=== PATIENT | female | born 1995 | race Caucasian/White ===

== ENCOUNTER → 2024-09-08 06:14 | Day surgery (SDC) | payer OTHER, SELFPAY | LOC: GI 06:14 | PROVIDERS: ATTENDING PHYSICIAN Internal Medicine | DX: K29.50 Unspecified chronic gastritis without bleeding (principal); K90.0 Celiac disease; R14.0 Abdominal distension (gaseous) | CPT/HCPCS: 43239; 88305; 88342 ==

== ENCOUNTER 2025-04-14 03:58 | Emergency (ER) | payer OTHER, SELFPAY ==
[2025-04-14 04:02] VITALS: BP 127/89
--- NOTE | 2025-04-14 06:43 | ED.GENMED ---
History of Present Illness
General
Chief Complaint: Fall
Time Seen by Provider: 04/14/25 06:11
History of Present Illness
History of Present Illness:
29-year-old female without significant past medical history presenting after a fall. Patient reports prior to arrival she missed a step and landed directly on her left elbow. She notes subsequent pain and swelling, is unable to fully extend her
elbow. Also reports left ankle pain. Denies head injury or loss of consciousness. Denies any prodromal dizziness or lightheadedness. Denies numbness or tingling to her extremities. She took ibuprofen prior to arrival, notes improvement in her
pain. Reports remote history of fracture to her elbow in 2019, requiring repair. Denies additional acute medical complaints or injuries at this time
Past History
Past History
ED Past Medical History: Psychiatric (a/d)
Social History
Tobacco: Non-smoker
Phy Exam
Physical Exam
Physical Exam:
General: Well-appearing, no clinical signs of dehydration, nontoxic and in no acute distress
HEENT: protecting airway
Neck: appears supple
CV: Normal heart rate
Resp: No accessory muscle use, no increased work of breathing
Abd: No distention
Extremities: No obvious deformity to the left upper extremity, however moderate effusion to the elbow with generalized pain. Unable to fully extend left arm, held in flexed position. No erythema or warmth. Distal patient and pulses intact. No
tenderness to the humerus or forearm. No significant swelling to the left ankle. No deformity. Generalized tenderness to the ankle joint with range of motion intact. Distal sensation and pulses intact
Neuro: alert, no focal neurologic deficit
: deferred
Rectal: deferred
Psych: Normal affect
Skin: Intact
Course
Orders/Labs/Results
Orders:
Orders
04/14/25 04:07
CR Elbow - Left Min 3 Views Urgent
Comment:
Reason For Exam: fell, injury to L elbow, hx injury and surgery
Foot, Left 3 View [CR Foot - Left Min 3 Views] Urgent
Comment:
Reason For Exam: fell, injury to distal metatarsal area
Vital Signs
Initial and Last Documented VS:
Initial Vital Signs
Temp Pulse Resp BP Pulse Ox
98.6 F 101 14 127/89 99
04/14/25 04:02 04/14/25 04:02 04/14/25 04:02 04/14/25 04:02 04/14/25 04:02
Last Documented Vital Signs
Temp Pulse Resp BP Pulse Ox
98.6 F 101 14 127/89 99
04/14/25 04:02 04/14/25 04:02 04/14/25 04:02 04/14/25 04:02 04/14/25 04:02
Procedures
Splinting/Sling Placement
Left Elbow:
Procedure completed by: Angie Gibson
Pre-splint extermity exam: neurovascular intact
Type of splint: posterior long arm
Splint material: fiberglass
Splint checked by provider?: Yes
Type of sling: sling fitted
Normal distal neurovascular exam?: Yes
MDM/Problems Addressed
MDM/Problems Addressed:
29-year-old female presenting after a fall with left elbow and left ankle pain. Vital signs normal.
On exam, patient resting comfortably, no acute distress or discomfort. Obvious joint effusion to the left elbow. Otherwise no infectious findings, no neurovascular compromise. No significant signs of trauma to the left ankle. Again no
neurovascular compromise, no infectious findings. Patient without any signs of head trauma, GCS of 15. Denies any prodromal symptoms, without concern for syncope or near syncope. Fall appears to be mechanical in nature. Patient declining any
pain medications at this time. X-rays obtained prior to my assessment of both the elbow and the ankle. Elbow shows a moderate effusion of the olecranon region. No obvious fracture, however could indicate occult intra-articular fracture. For this
reason we will place patient in a posterior long-arm splint. No fracture or malalignment to the ankle. Will place in a [place] shoe. Otherwise feel stable for discharge with outpatient orthopedic follow-up. Patient follows with [facility]
orthopedics. Advised Tylenol or Motrin as needed for pain. Return precautions discussed.
*Critical Care Note
Total Time (30-74mins, 75-104mins- exclusive of procedures): Not Applicable
ED Attending Note
-
Portions of this chart may have been created with voice recognition software.� Occasional wrong word or��sound alike� substitutions may have occurred due to the inherent limitations of voice recognition software.
Discharge Plan
Departure
Patient Disposition: Home (Routine Discharge)
Date of Disposition: 04/14/25
Time of Disposition: 06:47
Patient with high blood pressure during this ER visit?: No
Condition: Good
Discharge Problem:
Effusion, left elbow, Left ankle sprain
Instructions: Elbow Fracture, Adult ED, Ankle sprain - ED discharge instructions
Prescriptions:
No Action
escitalopram oxalate 5 MG tablet
5 mg PO DAILY
norethindrone-e.estradiol-iron [] 1 EACH tablet
1 ea PO DAILY
Referrals:
UNKNOWN - PT DOES,NOT KNOW [Family Provider]
Grant Jones MD [Active, Orthopedics]
Activity Restrictions/Additional Instructions:
You were seen in the emergency department for left elbow and left ankle pain after a fall
You were found to have an effusion to the left elbow, which is a collection of fluid. There was no obvious broken bone, however given this fluid, may indicate a small intra-articular fracture. You were placed in a splint and a sling. Please
follow-up with orthopedic doctor. The x-ray of your ankle was normal. Please use ice, compression, elevation, and anti-inflammatory medications.
Please follow-up closely with your primary care physician.
Return to the emergency department for any worsening of your symptoms, or any development of chest pain, difficulty breathing, abdominal pain with persistent vomiting and inability to tolerate food or liquid by mouth (concern for dehydration),
weakness, headache or confusion, fever greater than 100.4, or any additional symptoms that are concerning to you.
Thank you for choosing [facility].
Interventions
Interventions:
*Risk Screen - Suicide Last Done: 04/14/25 04:02
*General Assessment Last Done: 04/14/25 05:00
*Neglect/Abuse Screening Last Done: 04/14/25 05:00
*ED- Fall Risk Assessment Last Done: 04/14/25 05:00
*ED COVID-19 Vaccine History Last Done: 04/14/25 05:00
ED-Musculoskeletal Assessment Last Done: 04/14/25 05:00
ED- Neurological Assessment Last Done: 04/14/25 05:00
ED-Skin Assessment Last Done: 04/14/25 05:00
Discharge Date and Time
Print Language: YORUBA
[2025-04-14 06:55] VITALS: BP 115/82
== END 2025-04-14 07:32 | disposition home or self-care (01) ==
LOC: EMR 03:58
PROVIDERS: EMERGENCY PHYSICIAN Student in an Organized Health Care Education/Training Program
DX: M25.422 Effusion, left elbow (principal); S93.402A Sprain of unspecified ligament of left ankle, initial encounter; W10.9XXA Fall (on) (from) unspecified stairs and steps, initial encounter
CPT/HCPCS: 99283; 29105; 73080; 73630

== ENCOUNTER → 2025-05-22 10:16 | Outpatient (REF) | payer OTHER, SELFPAY | LOC: EMG 10:16 | PROVIDERS: ATTENDING PHYSICIAN Orthopaedic Surgery Hand Surgery; FAMILY PHYSICIAN Family Medicine | DX: M25.522 Pain in left elbow (principal); R20.0 Anesthesia of skin | CPT/HCPCS: 95886; 95910 ==